=== PATIENT | female | born 1950 | race Caucasian/White ===

== ENCOUNTER 2017-08-17 20:33 | Emergency (ER) | payer OTHER ==
--- NOTE | 2017-08-17 21:20 | RAD REPORT ---
EXAM DESCRIPTION: RAD - Forearm Left - 08/17/2017 9:12 pm CLINICAL HISTORY: fall pain COMPARISON: None FINDINGS: The anterior and posterior fat pads are elevated. Lucency is seen in the radial head estefania tible with fracture. No dislocation evident.
--- NOTE | 2017-08-17 21:21 | RAD REPORT ---
EXAM DESCRIPTION: RAD - Humerus Left - 08/17/2017 9:12 pm CLINICAL HISTORY: PAIN History of fall COMPARISON: No comparisons FINDINGS: Subacromial outlet narrowing is identified. Glenohumeral relationship is preserved. No acu te fracture or dislocation of the humerus is seen.
--- NOTE | 2017-08-17 21:42 | ER ---
Nurse's Notes [facility] Name: Mary Padilla Age: 67 yrs Sex: Female : 1950 Arrival Date: 08/17/2017 Time: 20:34 Bed 19 Private MD: Diagnosis: Left radial head fracture. Presentation: 08/17 20:42 Presenting complaint: Patient states: left arm pain after falling on cement while ak1 walking her dog at 1500 today. pt to left forearm and left elbow. Transition of care: patient was not received from another setting of care. Onset of symptoms was August 17, 2017. Risk Assessment: Do you want to hurt yourself or someone else? Patient reports no desire to harm self or others. Initial Sepsis Screen: Does the patient meet any 2 criteria? No. Patient's initial sepsis screen is negative. Does the patient have a suspected source of infection? No. Patient's initial sepsis screen is negative. Care prior to arrival: ice. 20:42 Method Of Arrival: Ambulatory ak1 20:42 Acuity: ARMOND 4 ak1 Triage Assessment: 20:45 General: Appears in no apparent distress. uncomfortable, Behavior is calm, cooperative. ak1 20:45 Pain: Complains of pain in dorsal aspect of left forearm, left elbow and palmar aspect ak1 of left forearm. 20:56 Injury Description: fall onto left arm. jd3 Historical: - Allergies: 20:44 everything; ak1 - Home Meds: 20:44 [place] Thyroid Oral [Active]; ak1 - PMHx: 20:44 Hypothyroidism; ak1 - PSHx: 20:44 Hysterectomy; left knee sx; ak1 - Immunization history:: Adult Immunizations unknown. - Social history:: Smoking status: Patient/guardian denies using tobacco. - Ebola Screening: : No symptoms or risks identified at this time. Screenin:45 Abuse screen: Denies threats or abuse. Denies injuries from another. Nutritional ak1 screening: No deficits noted. Tuberculosis screening: No symptoms or risk factors identified. Fall Risk None identified. Assessment: 20:53 General: Appears uncomfortable, Behavior is calm, cooperative, appropriate for age. jd3 Pain: Complains of pain in left forearm Pain currently is 9 out of 10 on a pain scale. Quality of pain is described as sharp, tender, Is continuous. Neuro: Level of Consciousness is awake, alert, obeys commands, Oriented to person, place, time, situation, Appropriate for age. Cardiovascular: Capillary refill < 3 seconds Patient's skin is warm and dry. Respiratory: Airway is patent Respiratory effort is even, unlabored, Respiratory pattern is regular, symmetrical, Breath sounds are clear bilaterally. GI: No signs and/or symptoms were reported involving the gastrointestinal system. : No signs and/or symptoms were reported regarding the genitourinary system. EENT: No signs and/or symptoms were reported regarding the EENT system. Derm: Skin is intact, Skin is dry, Skin is normal, Skin temperature is warm. Musculoskeletal: Circulation, motion, and sensation intact. Range of motion: limited in left forearm and elbow. 21:52 Reassessment: Patient appears in no apparent distress at this time. Patient and/or bs1 family updated on plan of care and expected duration. Pain level reassessed. Patient is alert, oriented x 3, equal unlabored respirations, skin warm/dry/pink. Patients left arm placed in sling. Patient reports pain "feeling better". Bartlett given prior to discharge. Instructed on medication usage, need for follow up with Dr Martinez. Patient states understanding of POC. Vital Signs: 20:42 BP 186 / 99; Pulse 84; Resp 18; Temp 97.7(O); Pulse Ox 98% on R/A; Weight 78.02 kg (R); ak1 Height 4 ft. 11 in. (149.86 cm) (R); Pain 9/10; 21:42 BP 163 / 82; Pulse 65; Resp 16; Temp 97.3(O); Pulse Ox 96% on R/A; Pain 4/10; bs1 20:42 Body Mass Index 34.74 (78.02 kg, 149.86 cm) ak1 ED Course: 20:34 Patient arrived in ED. am2 20:36 Gerardo Martínez MD is Attending Physician. ps1 20:43 Triage completed. ak1 20:44 Mark Chilel, ELIZA is Primary Nurse. jd3 20:44 Arm band placed on Patient placed in an exam room, on a stretcher, on pulse oximetry, ak1 Patient notified of wait time. 20:45 Patient has correct armband on for positive identification. Bed in low position. Call ak1 light in reach. Side rails up X 1. Adult w/ patient. Pulse ox on. NIBP on. 21:01 X-ray completed. Portable x-ray completed in exam room. Patient tolerated procedure bb2 well. 21:01 Humerus Left XRAY In Process Unspecified. EDMS 21:01 Forearm Left XRAY In Process Unspecified. EDMS 21:41 Anibal Martinez MD is Referral Physician. ps1 21:51 No provider procedures requiring assistance completed. Patient did not have IV access bs1 during this emergency room visit. Administered Medications: 21:46 Drug: Bartlett 5 mg-325 mg 1 tabs Route: PO; jd3 21:50 Follow up: Response: No adverse reaction bs1 Outcome: 21:41 Discharge ordered by MD. ps1 21:51 Discharged to home ambulatory, with significant other. bs1 21:51 Condition: stable 21:51 Discharge instructions given to patient, Instructed on discharge instructions, follow up and referral plans. medication usage, Demonstrated understanding of instructions, follow-up care, medications, Prescriptions given X 2. 21:54 Patient left the ED. bs1 Signatures: Dispatcher [employer] EDMT Disha Evans, RN RN ak1 Yary Blount amMark Collazo RN RN jd3 Gerardo Martínez MD MD ps1 Riri Dexter bb2 Riri Westbrook, RN RN bs1
--- NOTE | 2017-08-17 21:42 | EDPHYS ---
Physician Documentation [facility] Name: Mary Padilla Age: 67 yrs Sex: Female : 1950 Arrival Date: 08/17/2017 Time: 20:34 Bed 19 Private MD: ED Physician Gerardo Martínez HPI: 08/17 20:42 This 67 yrs old Female presents to ER via Unassigned with complaints of Arm ps1 Injury. 20:42 onset was 3 pm. Patient was walking dog and tripped and fell. Did not hit head. No LOC. ps1 Has pain localized to left forearm and lower humerus. Non-radiating. Has superficial abrasion to proximal forearm. Pain rated moderate, worse with movement. . Historical: - Allergies: 20:44 everything; ak1 - Home Meds: 20:44 [place] Thyroid Oral [Active]; ak1 - PMHx: 20:44 Hypothyroidism; ak1 - PSHx: 20:44 Hysterectomy; left knee sx; ak1 - Immunization history:: Adult Immunizations unknown. - Social history:: Smoking status: Patient/guardian denies using tobacco. - Ebola Screening: : No symptoms or risks identified at this time. ROS: 20:42 Constitutional: Negative for fever, chills, and weight loss, Eyes: Negative for injury, ps1 pain, redness, and discharge, ENT: Negative for injury, pain, and discharge, Cardiovascular: Negative for chest pain, palpitations, and edema, Respiratory: Negative for shortness of breath, cough, wheezing, and pleuritic chest pain, Abdomen/GI: Negative for abdominal pain, nausea, vomiting, diarrhea, and constipation, Back: Negative for injury and pain, Neuro: Negative for headache, weakness, numbness, tingling, and seizure. 20:42 MS/extremity: Positive for injury or acute deformity. 20:42 Skin: Positive for abrasion(s). Exam: 20:42 Constitutional: This is a well developed, well nourished patient who is awake, alert, ps1 and in no acute distress. Head/Face: Normocephalic, atraumatic. Eyes: Pupils equal round and reactive to light, extra-ocular motions intact. Lids and lashes normal. Conjunctiva and sclera are non-icteric and not injected. Chest/axilla: Normal chest wall appearance and motion. Nontender with no deformity. No lesions are appreciated. Cardiovascular: Regular rate and rhythm. No gallops, murmurs, or rubs. Normal PMI, no JVD. No pulse deficits. Respiratory: Lungs have equal breath sounds bilaterally, clear to auscultation and percussion. No rales, rhonchi or wheezes noted. No increased work of breathing, no retractions or nasal flaring. Abdomen/GI: Soft, non-tender, with normal bowel sounds. No distension or tympany. No guarding or rebound. No evidence of tenderness throughout. 20:42 Musculoskeletal/extremity: Extremities: grossly normal except: noted in the palmar aspect of left forearm: abrasion, pain, NV intact otherwise. Vital Signs: 20:42 BP 186 / 99; Pulse 84; Resp 18; Temp 97.7(O); Pulse Ox 98% on R/A; Weight 78.02 kg (R); ak1 Height 4 ft. 11 in. (149.86 cm) (R); Pain 9/10; 21:42 BP 163 / 82; Pulse 65; Resp 16; Temp 97.3(O); Pulse Ox 96% on R/A; Pain 4/10; bs1 20:42 Body Mass Index 34.74 (78.02 kg, 149.86 cm) ak1 MDM: 20:45 Patient medically screened. [facility] 20:45 Data reviewed: vital signs, nurses notes. ED course: pt deferred opioid analgesia until ps1 after workup. Offered during initial evaluation. . 21:44 ED course: Gave norco for pain prior to discharge. Home with follow up with Juan. ps1 Has non-displaced radial head fracture. Stable. NV intact. . 08/17 20:42 Order name: Humerus Left XRAY; Complete Time: 21:26 ps1 08/17 20:42 Order name: Forearm Left XRAY; Complete Time: 21:26 ps1 08/17 20:42 Order name: Arm-Sling; Complete Time: 20:45 ps1 Administered Medications: 21:46 Drug: [place] 5 mg-325 mg 1 tabs Route: PO; jd3 21:50 Follow up: Response: No adverse reaction bs1 Disposition: 08/17/17 21:41 Discharged to Home. Impression: Left radial head fracture. . - Condition is Stable. - Discharge Instructions: Radial Head Fracture. - Prescriptions for Tylenol- Codeine #3 300-30 mg Oral Tablet - take 2 tablet by ORAL route every 6 hours As needed; 30 tablet. Zofran 4 mg Oral Tablet - take 1 tablet by ORAL route every 12 hours As needed; 6 tablet. - Medication Reconciliation Form, Thank You Letter, Antibiotic Education, Prescription Opioid Use form. - Follow up: Anibal Martinez MD; When: 1 week; Reason: Recheck today's complaints, Continuance of care, Re-evaluation by your physician. - Problem is new. - Symptoms have improved. Signatures: Dispatcher [employer] EDMS Evens Stafford MD MD cha Krenek, Amber RN RN ak1 Mark Chilel RN RN jd3 Gerardo Martínez MD MD ps1 Salazar, Brittany RN RN bs1 Corrections: (The following items were deleted from the chart) 21:54 21:41 08/17/2017 21:41 Discharged to Home. Impression: Left radial head fracture. . bs1 Condition is Stable. Forms are Medication Reconciliation Form, Thank You Letter, Antibiotic Education, Prescription Opioid Use. Follow up: Anibal Martinez; When: 1 week; Reason: Recheck today's complaints, Continuance of care, Re-evaluation by your physician. Problem is new. Symptoms have improved. ps1
[2017-08-17] MEDS ORDERED: HYDROCODONE/APAP 5/325 MG TAB ONE (21:47)
== END 2017-08-17 21:54 | disposition home or self-care (01) ==
LOC: ER 20:33
DX: S52.122A Displaced fracture of head of left radius, initial encounter for closed fracture (principal); E03.9 Hypothyroidism, unspecified; W01.0XXA Fall on same level from slipping, tripping and stumbling without subsequent striking against object, initial encounter; Y93.K1 Activity, walking an animal; Y92.9 Unspecified place or not applicable; Y99.8 Other external cause status; Z91.09 Other allergy status, other than to drugs and biological substances
CPT/HCPCS: 99284

== ENCOUNTER 2017-12-07 09:58 | Emergency (ER) | payer OTHER ==
--- NOTE | 2017-12-07 10:47 | EKG ---
Test Date: 2017-12-07 Test Time: 10:40:09 Medical Center Director: HEATHER MEASUREMENT RESULTS: Intervals: Rate: 64 NH: 128 QRSD: 80 QT: 434 QTc: 447 [place]: P: 49 NH: 128 QRS: -9 T: 32 INTERPRETIVE STATEMENTS: Normal sinus rhythm Moderate voltage criteria for LVH, may be normal variant Borderline ECG No previous ECG available for comparison Electronically Signed On 12-07-17 10:47:00 CDT by Alejandro Amanda
[2017-12-07 11:02] LABS: Absolute Lymphocytes (CBC) 1.5 K/uL (0.7-4.9); Absolute Monocytes 0.4 K/uL (0.1-1.3); Absolute Neutrophil 3.5 K/uL (1.8-8.0); Basophils % 0.4 % (0-1.3); Eosinophils % 1.6 % (0-4.4); Hematocrit 40.7 % (36.0-45.0); Lymphocytes % 27.6 % (15.3-44.8); MCH 28.4 pg (27.0-35.0); MCV 86.6 fL (80-100); MPV 10.2 fL (7.6-11.3); Monocytes % 7.8 % (3.3-12.3); Protime INR 1.04
--- NOTE | 2017-12-07 11:03 | RAD REPORT ---
EXAM DESCRIPTION: RAD - Chest Single View - 12/07/2017 10:49 am CLINICAL HISTORY: COUGH Chest pain. COMPARISON: No comparisons FINDINGS: Portable technique limits examination quality. The lungs are grossly clear. The heart is normal in size. No displaced fractures. IMPRESSION: No acute intrathoracic process suspected.
[2017-12-07 11:10] LABS: Urine Blood NEGATIVE (NEG); Urine Glucose NEGATIVE (NEG); Urine Protein NEGATIVE (NEG); Urine Specific Gravity 1.015 (1.005-1.030); Urine pH 6.5 (5.0-7.0)
[2017-12-07 11:13] LABS: ALT/SGPT 20 U/L (12-78); AST/SGOT 16 U/L (15-37); Albumin 3.4 g/dL (3.4-5.0); Alkaline Phosphatase 120 U/L (45-117); BUN Blood Urea Nitrogen 15 mg/dL (7-18); Bicarbonate 26 mmol/L (21-32); Bilirubin Direct 0.1 mg/dL (0-0.2); Bilirubin Total 0.5 mg/dL (0.2-1.0); Glucose Level 95 mg/dL (74-106); NT PRO-BNP 276 pg/mL (<125); Potassium 3.5 mmol/L (3.5-5.1); Protein, Total 7.3 g/dL (6.4-8.2); Sodium Level 142 mmol/L (136-145); Troponin (Emerg Dept Use Only) < 0.02 ng/mL (0.0-0.045)
[2017-12-07] MEDS ORDERED: AMLODIPINE 5 MG TAB ONE (11:46)
--- NOTE | 2017-12-07 12:07 | RAD REPORT ---
EXAM DESCRIPTION: CT - Head Brain Wo Cont - 12/07/2017 11:46 am CLINICAL HISTORY: DIZZINESS Drowsiness, headache, hypertension COMPARISON: No comparisons TECHNIQUE: All CT scans are performed using dose optimization technique as appropriate and may inclu de automated exposure control or mA/KV adjustment according to patient size. FINDINGS: No intracranial hemorrhage, hydrocephalus or extra-axial fluid collection.No areas of brai n edema or evidence of midline shift. The paranasal sinuses and mastoids are clear. The calvarium is intact. IMPRESSION: No acute intracranial abnormality.
--- NOTE | 2017-12-07 12:13 | ER ---
Nurse's Notes [facility] Name: Mary Padilla Age: 67 yrs Sex: Female : 1950 Arrival Date: 12/07/2017 Time: 10:01 Bed 19 Private MD: Osvaldo Duff Diagnosis: Essential (primary) hypertension;Weakness;Dizziness and giddiness Presentation: 12/07 10:03 Presenting complaint: Patient states: "my blood pressure was really high this morning aa5 it was above 200 on the top number and above 100 on the bottom number". pt states "I just feel really bad, my head and my ears feel stuffy and I feel shaky". Pt reports she just started taking Doxazosin 12/04/17. Pt states "I took Doxazosin last night and this morning about an hour ago again". Transition of care: patient was not received from another setting of care. Onset of symptoms was December 07, 2017. Risk Assessment: Do you want to hurt yourself or someone else? Patient reports no desire to harm self or others. Initial Sepsis Screen: Does the patient meet any 2 criteria? No. Patient's initial sepsis screen is negative. Does the patient have a suspected source of infection? No. Patient's initial sepsis screen is negative. Care prior to arrival: None. 10:03 Method Of Arrival: Ambulatory aa5 10:03 Acuity: ARMOND 3 aa5 Historical: - Allergies: 10:06 Erythromycin; aa5 10:06 "all pain medicines"; aa5 10:06 Advil; aa5 - PMHx: 10:06 Hypothyroidism; Hypertension; aa5 - PSHx: 10:06 Hysterectomy; left knee sx; aa5 - Immunization history:: Adult Immunizations unknown. - Social history:: Smoking status: Patient/guardian denies using tobacco. - Ebola Screening: : No symptoms or risks identified at this time. - Family history:: not pertinent. Screenin:32 Abuse screen: Denies threats or abuse. Denies injuries from another. Nutritional jl7 screening: No deficits noted. Tuberculosis screening: No symptoms or risk factors identified. Fall Risk IV access (20 points). Total Lamb Fall Scale indicates No Risk (0-24 pts). Assessment: 10:20 General: Appears in no apparent distress. uncomfortable, Behavior is calm, cooperative, jl7 appropriate for age. Pain: Complains of pain in headache Pain currently is 8 out of 10 on a pain scale. Neuro: Level of Consciousness is awake, alert, obeys commands, Oriented to person, place, time, situation. Cardiovascular: Denies chest pain, Heart tones S1 S2 present Patient's skin is warm and dry. Respiratory: Airway is patent Respiratory effort is even, unlabored, Respiratory pattern is regular, symmetrical, Breath sounds are clear bilaterally. Denies shortness of breath. GI: No signs and/or symptoms were reported involving the gastrointestinal system. : No signs and/or symptoms were reported regarding the genitourinary system. EENT: No signs and/or symptoms were reported regarding the EENT system. Derm: Skin is pink, warm \\T\\ dry. Musculoskeletal: No signs and/or symptoms reported regarding the musculoskeletal system. 11:13 Reassessment: Dr. Stafford at bedside discussing plan of care. jl7 12:00 Reassessment: Patient appears in no apparent distress at this time. No changes from jl7 previously documented assessment. Patient and/or family updated on plan of care and expected duration. Pain level reassessed. Patient is alert, oriented x 3, equal unlabored respirations, skin warm/dry/pink. 12:28 Reassessment: Pt requesting to talk to Dr. Stafford, Dr. Stafford notified. jl7 Vital Signs: 10:06 BP 181 / 106; Pulse 65; Resp 18 S; Temp 98.0(TE); Pulse Ox 99% on R/A; Weight 79.38 kg aa5 (R); Height 4 ft. 11 in. (149.86 cm) (R); Pain 8/10; 10:32 BP 171 / 94; Pulse 63; Resp 18 S; Pulse Ox 99% on R/A; jl7 11:12 BP 175 / 87; Pulse 71; Resp 17 S; Pulse Ox 99% on R/A; jl7 12:30 BP 188 / 96; Pulse 57; Resp 16; Pulse Ox 100% ; jl7 10:06 Body Mass Index 35.35 (79.38 kg, 149.86 cm) aa5 ED Course: 10:01 Patient arrived in ED. mr 10:02 Osvaldo Duff is Private Physician. mr 10:05 Triage completed. aa5 10:05 Arm band placed on. aa5 10:14 Weiss, Jahala, RN is Primary Nurse. jl7 10:19 Evens Stafford MD is Attending Physician. [facility] 10:32 Patient has correct armband on for positive identification. Placed in gown. Bed in low jl7 position. Call light in reach. Side rails up X 1. community arts worker on. Pulse ox on. NIBP on. Warm blanket given. 10:32 Initial lab(s) drawn, by or, sent to lab. Urine collected: clean catch specimen. jl7 Inserted saline lock: 20 gauge in right antecubital area, using aseptic technique. Blood collected. 10:42 EKG done, by marine diesel technician. reviewed by Evens Stafford MD. 3 10:49 X-ray completed. Portable x-ray completed in exam room. Patient tolerated procedure sw well. 10:49 XRAY Chest (1 view) In Process Unspecified. EDDE 11:42 CT completed. Patient tolerated procedure well. Patient moved to CT via wheelchair. Patient moved back from CT. 11:45 CT Head Brain wo Cont In Process Unspecified. EDMS 12:13 Osvaldo Duff is Referral Physician. [facility] 12:13 Brandon Singh MD is Referral Physician. [facility] 12:48 No provider procedures requiring assistance completed. IV discontinued, intact, jl7 bleeding controlled, No redness/swelling at site. Pressure dressing applied. Administered Medications: 11:50 Drug: Norvasc 5 mg Route: PO; jl7 12:48 Follow up: Response: No adverse reaction jl7 Outcome: 12:13 Discharge ordered by . [facility] 12:48 Discharged to home ambulatory. jl7 12:48 Condition: stable 12:48 Discharge instructions given to patient, family, Instructed on discharge instructions, follow up and referral plans. medication usage, Demonstrated understanding of instructions, follow-up care, medications, Prescriptions given X 1. 12:49 Patient left the ED. jl7 Signatures: Dispatcher [employer] EDDE Evens Stafford MD MD cha Rivera, Mercedez Flor Sykes Ashlee Campos, RN RN Rebecca Farah Jahala, ELIZA RN jl7 Cassie Patrick 3 Corrections: (The following items were deleted from the chart) 11:12 10:20 Pain: Denies pain. jl7 jl7 12:29 11:00 Reassessment: Patient appears in no apparent distress at this time. No changes jl7 from previously documented assessment. Patient and/or family updated on plan of care and expected duration. Pain level reassessed. Patient is alert, oriented x 3, equal unlabored respirations, skin warm/dry/pink. jl7
--- NOTE | 2017-12-07 12:13 | EDPHYS ---
Physician Documentation [facility] Name: Mary Padilla Age: 67 yrs Sex: Female : 1950 Arrival Date: 12/07/2017 Time: 10:01 Bed 19 Private MD: Osvaldo Duff ED Physician Evens Stafford HPI: 12/07 11:51 This 67 yrs old Female presents to ER via Ambulatory with complaints of High pau Blood Pressure. 11:51 The patient has elevated blood pressure and discovered this at home. Onset: The pau symptoms/episode began/occurred 2 day(s) ago. Modifying factors: The symptoms are aggravated by activity, The symptoms are alleviated by remaining still. Associated signs and symptoms: Pertinent positives: dizziness, headache, lightheadedness. Severity of symptoms: At its worst the blood pressure was mild, in the emergency department the blood pressure is unchanged. The patient has experienced similar episodes in the past, several times. Historical: - Allergies: 10:06 Erythromycin; aa5 10:06 "all pain medicines"; aa5 10:06 Advil; aa5 - PMHx: 10:06 Hypothyroidism; Hypertension; aa5 - PSHx: 10:06 Hysterectomy; left knee sx; aa5 - Immunization history:: Adult Immunizations unknown. - Social history:: Smoking status: Patient/guardian denies using tobacco. - Ebola Screening: : No symptoms or risks identified at this time. - Family history:: not pertinent. ROS: 11:51 Constitutional: Negative for fever, chills, and weight loss, Eyes: Negative for injury, pau pain, redness, and discharge, ENT: Negative for injury, pain, and discharge, Neck: Negative for injury, pain, and swelling, Cardiovascular: Negative for chest pain, palpitations, and edema, Respiratory: Negative for shortness of breath, cough, wheezing, and pleuritic chest pain, Abdomen/GI: Negative for abdominal pain, nausea, vomiting, diarrhea, and constipation, Back: Negative for injury and pain, : Negative for injury, bleeding, discharge, and swelling, MS/Extremity: Negative for injury and deformity, Skin: Negative for injury, rash, and discoloration, Psych: Negative for depression, anxiety, suicide ideation, homicidal ideation, and hallucinations, Allergy/Immunology: Negative for hives, rash, and allergies, Endocrine: Negative for neck swelling, polydipsia, polyuria, polyphagia, and marked weight changes, Hematologic/Lymphatic: Negative for swollen nodes, abnormal bleeding, and unusual bruising. 11:51 Neuro: Positive for dizziness, headache, weakness. Exam: 11:51 Constitutional: This is a well developed, well nourished patient who is awake, alert, pau and in no acute distress. Head/Face: Normocephalic, atraumatic. Eyes: Pupils equal round and reactive to light, extra-ocular motions intact. Lids and lashes normal. Conjunctiva and sclera are non-icteric and not injected. Cornea within normal limits. Periorbital areas with no swelling, redness, or edema. ENT: Nares patent. No nasal discharge, no septal abnormalities noted. Tympanic membranes are normal and external auditory canals are clear. Oropharynx with no redness, swelling, or masses, exudates, or evidence of obstruction, uvula midline. Mucous membranes moist. Neck: Trachea midline, no thyromegaly or masses palpated, and no cervical lymphadenopathy. Supple, full range of motion without nuchal rigidity, or vertebral point tenderness. No Meningismus. Chest/axilla: Normal chest wall appearance and motion. Nontender with no deformity. No lesions are appreciated. Cardiovascular: Regular rate and rhythm with a normal S1 and S2. No gallops, murmurs, or rubs. Normal PMI, no JVD. No pulse deficits. Respiratory: Lungs have equal breath sounds bilaterally, clear to auscultation and percussion. No rales, rhonchi or wheezes noted. No increased work of breathing, no retractions or nasal flaring. Abdomen/GI: Soft, non-tender, with normal bowel sounds. No distension or tympany. No guarding or rebound. No evidence of tenderness throughout. Back: No spinal tenderness. No costovertebral tenderness. Full range of motion. Female : Normal external genitalia. Skin: Warm, dry with normal turgor. Normal color with no rashes, no lesions, and no evidence of cellulitis. MS/ Extremity: Pulses equal, no cyanosis. Neurovascular intact. Full, normal range of motion. Neuro: Awake and alert, GCS 15, oriented to person, place, time, and situation. Cranial nerves II-XII grossly intact. Motor strength 5/5 in all extremities. Sensory grossly intact. Cerebellar exam normal. Normal gait. Psych: Awake, alert, with orientation to person, place and time. Behavior, mood, and affect are within normal limits. 12:12 Neck: External neck: is normal, no acute changes, C-spine: appears grossly normal, no pau acute changes, Thyroid: appears normal, no carotid bruits, no jvd, Trachea: is midline with no obvious abnormalities, ROM/movement: is normal, no acute changes, Lymph nodes: no appreciated lymphadenopathy. Vital Signs: 10:06 BP 181 / 106; Pulse 65; Resp 18 S; Temp 98.0(TE); Pulse Ox 99% on R/A; Weight 79.38 kg aa5 (R); Height 4 ft. 11 in. (149.86 cm) (R); Pain 8/10; 10:32 BP 171 / 94; Pulse 63; Resp 18 S; Pulse Ox 99% on R/A; jl7 11:12 BP 175 / 87; Pulse 71; Resp 17 S; Pulse Ox 99% on R/A; jl7 12:30 BP 188 / 96; Pulse 57; Resp 16; Pulse Ox 100% ; jl7 10:06 Body Mass Index 35.35 (79.38 kg, 149.86 cm) aa5 MDM: 10:19 Patient medically screened. [facility] 12:11 Data reviewed: vital signs, nurses notes, lab test result(s), EKG, radiologic studies, [facility] CT scan, plain films. 12/07 10:27 Order name: Basic Metabolic Panel; Complete Time: 11:20 [facility] 12/07 10:27 Order name: CBC with Diff; Complete Time: 11:20 [facility] 12/07 10:27 Order name: LFT's; Complete Time: 11:20 [facility] 12/07 10:27 Order name: Magnesium; Complete Time: 11:20 [facility] 12/07 10:27 Order name: NT PRO-BNP; Complete Time: 11:20 [facility] 12/07 10:27 Order name: PT-INR; Complete Time: 11:20 [facility] 12/07 10:27 Order name: Troponin (emerg Dept Use Only); Complete Time: 11:20 [facility] 12/07 10:27 Order name: XRAY Chest (1 view); Complete Time: 11:20 [facility] 12/07 10:27 Order name: EKG; Complete Time: 10:28 [facility] 12/07 10:27 Order name: Cardiac monitoring; Complete Time: 10:30 [facility] 12/07 10:44 Order name: Urine Dipstick--Ancillary (enter results); Complete Time: 11:20 12/07 11:20 Order name: TSH [facility] 12/07 11:21 Order name: CT Head Brain wo Cont; Complete Time: 12:10 [facility] 12/07 10:27 Order name: EKG - Nurse/Tech; Complete Time: 10:39 [facility] 12/07 10:27 Order name: IV Saline Lock; Complete Time: 10:29 [facility] 12/07 10:27 Order name: Labs collected and sent; Complete Time: 10:29 [facility] 12/07 10:27 Order name: O2 Per Protocol; Complete Time: 10:29 [facility] 12/07 10:27 Order name: O2 Sat Monitoring; Complete Time: 10:29 [facility] 12/07 10:27 Order name: Urine Dipstick-Ancillary (obtain specimen); Complete Time: 10:30 [facility] Administered Medications: 11:50 Drug: Norvasc 5 mg Route: PO; jl7 12:48 Follow up: Response: No adverse reaction jl7 Disposition: 12/07/17 12:13 Discharged to Home. Impression: Essential (primary) hypertension, Weakness, Dizziness and giddiness. - Condition is Stable. - Discharge Instructions: Dizziness, Hypertension, Weakness, Fatigue, Hypertension, Svlb-jh-[id number], How to Take Your Blood Pressure, Mokn-cn-[id number], Weakness, Cvxc-zj-Bhhv, Managing Your Hypertension. - Prescriptions for Norvasc 5 mg Oral Tablet - take 1 tablet by ORAL route once daily; 20 tablet. - Medication Reconciliation Form, Thank You Letter, Antibiotic Education, Prescription Opioid Use form. - Follow up: Osvaldo Duff; When: 2 - 3 days; Reason: Recheck today's complaints, Continuance of care, Re-evaluation by your physician. Follow up: Brandon Singh; When: 2 - 3 days; Reason: Recheck today's complaints, Re-evaluation by your physician. - Problem is new. - Symptoms have improved. Signatures: Dispatcher [employer] EDEvens Dutta MD MD cha Calderon, Audri, RN RN aa5 Negar Weiss RN RN jl7 Corrections: (The following items were deleted from the chart) 12:49 12:13 12/07/2017 12:13 Discharged to Home. Impression: Essential (primary) jl7 hypertension; Weakness; Dizziness and giddiness. Condition is Stable. Discharge Instructions: Dizziness, Hypertension, Weakness, Fatigue, Hypertension, Xwdo-st-Hjiu, How to Take Your Blood Pressure, Llfh-re-Lxaf, Weakness, Tlwd-zb-Ediu, Managing Your Hypertension. Prescriptions for Norvasc 5 mg Oral Tablet - take 1 tablet by ORAL route once daily; 20 tablet. and Forms are Medication Reconciliation Form, Thank You Letter, Antibiotic Education, Prescription Opioid Use. Follow up: Osvaldo Duff; When: 2 - 3 days; Reason: Recheck today's complaints, Continuance of care, Re-evaluation by your physician. Follow up: Brandon Singh; When: 2 - 3 days; Reason: Recheck today's complaints, Re-evaluation by your physician. Problem is new. Symptoms have improved. pau
== END 2017-12-07 12:49 | disposition home or self-care (01) ==
LOC: ER 09:58
DX: I10 Essential (primary) hypertension (principal); R53.1 Weakness; Z88.3 Allergy status to other anti-infective agents; Z88.6 Allergy status to analgesic agent; Z88.8 Allergy status to other drugs, medicaments and biological substances
CPT/HCPCS: 36415; 70450; 71045; 80048; 80076; 81003; 83735; 83880; 84443; 84484; 85025; 85610; 93005; 99285

== ENCOUNTER 2020-05-26 21:03 | Emergency (ER) | payer OTHER ==
--- OUTSIDE RECORDS SUMMARY | 2020-05-26 21:06 | XMS REPORT | Continuity of Care Document ---
:1950 Author Organization [facility] t Address [address] [place] [address] Care Team Providers Name Role Phone GERMAINE Attending Clinician Unavailable KAMILLA Attending Clinician Unavailable GERMAINE Admitting Clinician Unavailable Problems This patient has no known problems. Allergies, Adverse Reactions, Alerts This patient has no known allergies or adverse reactions. Medications This patient has no known medications. Procedures This patient has no known procedures. Encounters Start End Encounter Admission Attending Care Care Encounter Source Date/Time Date/Time Type Type Clinicians Facility Department ID 2019-12-28 2019-12-28 [facility] [id number] [place] 00:00:00 00:00:00 JOSIE [address] [facility] 2019-08-25 2019-08-25 [facility] [id number] [place] 00:00:00 00:00:00 KERWIN [address] 2019-05-11 2019-05-11 [facility] [id number] [place] 00:00:00 00:00:00 JOSIE [address] 2018-11-29 2018-11-30 [facility] [id number] [place] 00:00:00 00:00:00 JOSIE [address] Results This patient has no known results.
[2020-05-26 22:27] LABS: Absolute Lymphocytes (CBC) 1.5 K/uL (0.7-4.9); Basophils % 0.8 % (0-1.3); Hematocrit 36.6 % (36.0-45.0); Lymphocytes % 27.7 % (15.3-44.8); MPV 9.5 fL (7.6-11.3); RBC Red Blood Cell Count 4.25 M/uL (3.86-4.86)
[2020-05-26 22:33] LABS: Protime INR 0.96
[2020-05-26] MEDS ORDERED: NA CHLORIDE 0.9% 500 ML ONE (22:36)
[2020-05-26] MEDS ORDERED: FAMOTIDINE 20 MG/2 ML VIAL IV ONE (22:36)
[2020-05-26] MEDS ORDERED: ONDANSETRON 4 MG/2 ML VIAL ONE ×2 (22:36→23:31)
[2020-05-26 22:49] LABS: ALT/SGPT 22 U/L (12-78); AST/SGOT 18 U/L (15-37); Albumin 3.4 g/dL (3.4-5.0); Alkaline Phosphatase 123 U/L (45-117); BUN Blood Urea Nitrogen 21 mg/dL (7-18); Bicarbonate 28 mmol/L (21-32); Bilirubin Direct 0.1 mg/dL (0-0.2); Bilirubin Total 0.4 mg/dL (0.2-1.0); Glucose Level 93 mg/dL (74-106); Lipase 91 U/L (73-393); Magnesium 2.1 mg/dL (1.8-2.4); NT PRO-BNP 195 pg/mL (<125); Potassium 3.6 mmol/L (3.5-5.1); Protein, Total 7.4 g/dL (6.4-8.2); Sodium Level 141 mmol/L (136-145); Troponin (Emerg Dept Use Only) < 0.02 ng/mL (0.0-0.045)
[2020-05-27 00:06] LABS: Urine Blood NEGATIVE (Negative); Urine Glucose NEGATIVE (Negative); Urine Protein NEGATIVE (NEG)
[2020-05-27] MEDS ORDERED: MECLIZINE HCL 12.5 MG TAB ONE (01:09)
--- NOTE | 2020-05-27 01:41 | EDPHYS ---
Physician Documentation [facility] Name: Mary Padilla Age: 69 yrs Sex: Female : 1950 Arrival Date: 05/26/2020 Time: 21:03 Bed 7 Private MD: ED Physician Dani Gallardo HPI: 05/26 23:16 This 69 yrs old Female presents to ER via Wheelchair with complaints of High mh7 Blood Pressure, Vomiting. 23:16 The patient presents with dizziness, sense of spinning. Onset: The symptoms/episode mh7 began/occurred yesterday. 23:17 Context: occurred at home, occurred while the patient was sitting, just prior to the mh7 episode the patient experienced no apparent symptoms. Modifying factors: The symptoms are alleviated by holding head still, the symptoms are aggravated by movement of head, changing position. Associated signs and symptoms: Pertinent positives: nausea, vomiting, Pertinent negatives: abdominal pain, agitation, ataxia, blurred vision, chest pain, combativeness, confusion, diaphoresis, focal weakness, head injury, headache, near-syncope, numbness, palpitations, , seizure, shortness of breath, syncope, tingling. Severity of symptoms: At their worst the symptoms were moderate last night, in the emergency department the symptoms are unchanged. Patient's baseline: Neuro: alert and fully oriented, Motor: no deficits, Ambulation: walks without assistance, Speech: normal. Historical: - Allergies: 21:07 "all pain medicines"; ll1 21:07 Advil; ll1 21:07 Erythromycin; ll1 - Home Meds: 23:06 Dexilant 60 mg oral CpDB [Active]; losartan 50 mg oral tab 1 tab once daily [Active]; lp1 Browning Thyroid Oral [Active]; - PMHx: 21:07 Hypertension; Hypothyroidism; ll1 - PSHx: 21:07 Hysterectomy; left knee sx; ll1 21:07 bladder prolapse repair; ll1 - Immunization history:: Flu vaccine is not up to date. - Social history:: Smoking status: Patient denies any tobacco usage or history of. ROS: 23:17 Constitutional: Negative for fever, chills, and weight loss, Eyes: Negative for injury, mh7 pain, redness, and discharge, ENT: Negative for injury, pain, and discharge, Neck: Negative for injury, pain, and swelling, Cardiovascular: Negative for chest pain, palpitations, and edema, Respiratory: Negative for shortness of breath, cough, wheezing, and pleuritic chest pain, Back: Negative for injury and pain, : Negative for injury, bleeding, discharge, and swelling, MS/Extremity: Negative for injury and deformity, Skin: Negative for injury, rash, and discoloration, Neuro: Negative for headache, weakness, numbness, tingling, and seizure, Psych: Negative for depression, anxiety, suicide ideation, homicidal ideation, and hallucinations, Allergy/Immunology: Negative for hives, rash, and allergies, Endocrine: Negative for neck swelling, polydipsia, polyuria, polyphagia, and marked weight changes, Hematologic/Lymphatic: Negative for swollen nodes, abnormal bleeding, and unusual bruising. Exam: 23:17 Constitutional: This is a well developed, well nourished patient who is awake, alert, mh7 and in no acute distress. Head/Face: Normocephalic, atraumatic. Eyes: Pupils equal round and reactive to light, extra-ocular motions intact. Lids and lashes normal. Conjunctiva and sclera are non-icteric and not injected. Cornea within normal limits. Periorbital areas with no swelling, redness, or edema. ENT: Nares patent. No nasal discharge, no septal abnormalities noted. Tympanic membranes are normal and external auditory canals are clear. Oropharynx with no redness, swelling, or masses, exudates, or evidence of obstruction, uvula midline. Mucous membranes moist. Neck: Trachea midline, no thyromegaly or masses palpated, and no cervical lymphadenopathy. Supple, full range of motion without nuchal rigidity, or vertebral point tenderness. No Meningismus. Chest/axilla: Normal chest wall appearance and motion. Nontender with no deformity. No lesions are appreciated. Cardiovascular: Regular rate and rhythm with a normal S1 and S2. No gallops, murmurs, or rubs. Normal PMI, no JVD. No pulse deficits. Respiratory: Lungs have equal breath sounds bilaterally, clear to auscultation and percussion. No rales, rhonchi or wheezes noted. No increased work of breathing, no retractions or nasal flaring. Abdomen/GI: Soft, non-tender, with normal bowel sounds. No distension or tympany. No guarding or rebound. No evidence of tenderness throughout. Back: No spinal tenderness. No costovertebral tenderness. Full range of motion. Skin: Warm, dry with normal turgor. Normal color with no rashes, no lesions, and no evidence of cellulitis. MS/ Extremity: Pulses equal, no cyanosis. Neurovascular intact. Full, normal range of motion. Neuro: Awake and alert, GCS 15, oriented to person, place, time, and situation. Cranial nerves II-XII grossly intact. Motor strength 5/5 in all extremities. Sensory grossly intact. Cerebellar exam normal. Normal gait. Psych: Awake, alert, with orientation to person, place and time. Behavior, mood, and affect are within normal limits. Vital Signs: 21:04 BP 185 / 96; Pulse 67; Resp 17; Temp 97.1; Pulse Ox 100% ; Weight 76.2 kg; Height 4 ft. ll1 11 in. (149.86 cm); Pain 7/10; 21:45 BP 193 / 87; Pulse 67; Resp 18; Pulse Ox 98% on R/A; lp1 22:15 BP 176 / 64; Pulse 60; Resp 18; Pulse Ox 100% on R/A; lp1 23:15 BP 166 / 93; Pulse 61; Resp 17; lp1 05/27 00:00 BP 161 / 77; Pulse 59; Resp 19; Pulse Ox 95% on R/A; lp1 01:03 BP 149 / 76; Pulse 67; Resp 17; Pulse Ox 99% on R/A; Pain 0/10; lp1 01:54 BP 145 / 77; Pulse 66; Resp 16; Pulse Ox 99% on R/A; rv 05/26 21:04 Body Mass Index 33.93 (76.20 kg, 149.86 cm) ll1 MDM: 01:39 Differential diagnosis: cardiac arrhythmia, hypovolemia, idiopathic dizziness, mh7 near-syncope, vertigo. Data reviewed: vital signs, nurses notes, lab test result(s), cardiac enzymes, CBC, electrolytes, EKG, radiologic studies, CT scan, plain films. Data interpreted: Pulse oximetry: on room air is 99 %. Interpretation: normal. Counseling: I had a detailed discussion with the patient and/or guardian regarding: the historical points, exam findings, and any diagnostic results supporting the discharge/admit diagnosis, the presence of at least one elevated blood pressure reading (>120/80) during this emergency department visit, lab results, radiology results, the need for outpatient follow up, to return to the emergency department if symptoms worsen or persist or if there are any questions or concerns that arise at home. Response to treatment: the patient's symptoms have resolved after treatment, the patient's blood pressure is in an acceptable range, mental status has returned to baseline, the patient no longer shows bradycardia, the patient is not short of breath, the patient is not tachycardic, the patient's pain is gone, the patient's temperature has normalized, the patient is now symptom free, patient is well hydrated. 01:41 Patient medically screened. [facility] 05/26 22:09 Order name: Basic Metabolic Panel [facility] 05/26 22:09 Order name: CBC with Diff; Complete Time: 23:06 [facility] 05/26 22:09 Order name: LFT's; Complete Time: 23:06 [facility] 05/26 22:09 Order name: Magnesium; Complete Time: 23:06 [facility] 05/26 22:09 Order name: NT PRO-BNP; Complete Time: 23:06 [facility] 05/26 22:09 Order name: PT-INR; Complete Time: 23:06 [facility] 05/26 22:09 Order name: Troponin (emerg Dept Use Only); Complete Time: 23:06 [facility] 05/26 22:09 Order name: XRAY Chest (1 view) [facility] 05/26 22:09 Order name: Lipase; Complete Time: 23:06 [facility] 05/26 22:09 Order name: CT Head Brain wo Cont [facility] 05/26 22:09 Order name: CT Abd/Pelvis - IV Contrast Only [facility] 05/26 22:10 Order name: Basic Metabolic Panel; Complete Time: 23:06 [facility] 05/26 23:59 Order name: Urine Dipstick--Ancillary (enter results); Complete Time: 00:13 2 05/26 22:09 Order name: EKG; Complete Time: 22:10 [facility] 05/26 22:09 Order name: Cardiac monitoring; Complete Time: 22:31 [facility] 05/26 22:09 Order name: EKG - Nurse/Tech; Complete Time: 22:31 [facility] 05/26 22:09 Order name: IV Saline Lock; Complete Time: 22:31 mh7 05/26 22:09 Order name: Labs collected and sent; Complete Time: 22: mh7 05/26 22:09 Order name: O2 Per Protocol; Complete Time: :31 mh7 05/26 22:09 Order name: O2 Sat Monitoring; Complete Time: 22:31 mh7 05/26 22:09 Order name: Urine Dipstick-Ancillary (obtain specimen); Complete Time: 00:59 mh7 Administered Medications: 05/26 22:20 Drug: Zofran (Ondansetron) 4 mg Route: IVP; Site: left antecubital; lp1 22:45 Follow up: Response: No adverse reaction lp1 22:20 Drug: Pepcid (famotidine) 20 mg Route: IVP; Site: left antecubital; lp1 23:00 Follow up: Response: No adverse reaction lp1 22:20 Drug: NS 0.9% 500 ml Route: IV; Rate: bolus; Site: left antecubital; lp1 23:00 Follow up: IV Status: Completed infusion; IV Intake: 500ml lp1 23:19 Drug: Zofran (Ondansetron) 4 mg Route: IVP; Site: left antecubital; lp1 23:45 Follow up: Response: Nausea is decreased [facility] 05/27 00:56 Drug: Meclizine 25 mg Route: PO; lp1 01:55 Follow up: Response: No adverse reaction rv Disposition: 05/27/20 01:41 Discharged to Home. Impression: Vertigo. - Condition is Stable. - Discharge Instructions: Vertigo, Doak-ad-Zjru. - Prescriptions for Meclizine 25 mg Oral Tablet - take 1 tablet by ORAL route every 8 hours As needed; 15 tablet. - Medication Reconciliation Form, Thank You Letter, Antibiotic Education, Prescription Opioid Use form. - Follow up: Private Physician; When: 1 - 2 days; Reason: Worsening of condition, Recheck today's complaints, Continuance of care, Re-evaluation by your physician. Follow up: Marci Suero MD; When: 1 - 2 days; Reason: Worsening of condition, Recheck today's complaints. - Problem is new. - Symptoms have improved. Signatures: Dispatcher [employer] EDMS Sadaf Garcia RN RN lp1 Payam Thomas, RN RN rv Fred Barrientos RN RN ll1 Dani Gallardo MD MD mh7 Corrections: (The following items were deleted from the chart) 01:55 01:41 05/27/2020 01:41 Discharged to Home. Impression: Vertigo. Condition is Stable. rv Forms are Medication Reconciliation Form, Thank You Letter, Antibiotic Education, Prescription Opioid Use. Follow up: Private Physician; When: 1 - 2 days; Reason: Worsening of condition, Recheck today's complaints, Continuance of care, Re-evaluation by your physician. Follow up: Marci Suero; When: 1 - 2 days; Reason: Worsening of condition, Recheck today's complaints. Problem is new. Symptoms have improved. mh7
--- NOTE | 2020-05-27 01:41 | ER ---
Nurse's Notes [facility] Name: Mary Padilla Age: 69 yrs Sex: Female : 1950 Arrival Date: 05/26/2020 Time: 21:03 Bed 7 Private MD: Diagnosis: Vertigo Presentation: 05/26 21:04 Chief complaint: Patient states: Dizziness since midnight. Resolved last night. 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 N/V on the way here. BP 195/112 at home. Coronavirus screen: Client denies travel out of the [place] in the last 14 days. At this time, the client does not indicate any symptoms associated with coronavirus-19. Ebola Screen: Patient denies travel to an Ebola-affected area in the 21 days before illness onset. Initial Sepsis Screen: Does the patient meet any 2 criteria? No. Patient's initial sepsis screen is negative. Does the patient have a suspected source of infection? No. Patient's initial sepsis screen is negative. Risk Assessment: Do you want to hurt yourself or someone else? Patient reports no desire to harm self or others. Onset of symptoms was May 26, 2020. 21:04 Method Of Arrival: Wheelchair ll1 21:04 Acuity: ARMOND 2 ll1 Historical: - Allergies: 21:07 "all pain medicines"; ll1 21:07 Advil; ll1 21:07 Erythromycin; ll1 - Home Meds: 23:06 Dexilant 60 mg oral CpDB [Active]; losartan 50 mg oral tab 1 tab once daily [Active]; lp1 [place] Thyroid Oral [Active]; - PMHx: 21:07 Hypertension; Hypothyroidism; ll1 - PSHx: 21:07 Hysterectomy; left knee sx; ll1 21:07 bladder prolapse repair; ll1 - Immunization history:: Flu vaccine is not up to date. - Social history:: Smoking status: Patient denies any tobacco usage or history of. Screenin:33 Abuse screen: Denies threats or abuse. Denies injuries from another. Nutritional lp1 screening: No deficits noted. Tuberculosis screening: No symptoms or risk factors identified. Fall Risk No fall in past 12 months (0 pts). Secondary diagnosis (15 points) dizziness. IV access (20 points). Ambulatory Aid- None/Bed Rest/Nurse Assist (0 pts). Gait- Normal/Bed Rest/Wheelchair (0 pts) Mental Status- Oriented to own ability (0 pts). Total Lamb Fall Scale indicates Low Risk Score (25-44 pts). Fall prevention measures have been instituted. Side Rails Up X 2 As available Patient and Family Educated on Fall Prevention Program and strategies. Assessment: 22:30 General: Appears uncomfortable, Behavior is appropriate for age. Pain: Complains of lp1 pain in head Pain currently is 6 out of 10 on a pain scale. Neuro: Level of Consciousness is awake, alert, obeys commands, Oriented to person, place, time, situation, Gait is steady, Reports dizziness, headache Denies blurred vision paresthesias photophobia. Cardiovascular: Patient's skin is warm and dry. Respiratory: Airway is patent Respiratory effort is even, unlabored, Respiratory pattern is regular. GI: Abdomen is non-distended, Reports nausea. : No signs and/or symptoms were reported regarding the genitourinary system. EENT: No signs and/or symptoms were reported regarding the EENT system. Derm: Skin is pink, warm \\T\\ dry. Musculoskeletal: No deficits noted. 23:15 Reassessment: Patient concerned of nausea before being taken to CT; Provider verbal lp1 order for Zofran 4mg IV now. 23:40 Reassessment: Patient returned from CT; assisted to bathroom via WC, no complaint of lp1 nausea at this time. 05/27 00:56 Reassessment: Patient reports feeling better, dizziness on movement has improved, no lp1 nausea; States readiness for discharge. 01:25 Reassessment: Patient appears in no apparent distress at this time. Patient is alert, lp1 oriented x 3, equal unlabored respirations, skin warm/dry/pink. patient ambulated to bathroom independently, no complaints, steady gait noted Patient states feeling better. Vital Signs: 05/26 21:04 BP 185 / 96; Pulse 67; Resp 17; Temp 97.1; Pulse Ox 100% ; Weight 76.2 kg; Height 4 ft. ll1 11 in. (149.86 cm); Pain 7/10; 21:45 BP 193 / 87; Pulse 67; Resp 18; Pulse Ox 98% on R/A; lp1 22:15 BP 176 / 64; Pulse 60; Resp 18; Pulse Ox 100% on R/A; lp1 23:15 BP 166 / 93; Pulse 61; Resp 17; lp1 05/27 00:00 BP 161 / 77; Pulse 59; Resp 19; Pulse Ox 95% on R/A; lp1 01:03 BP 149 / 76; Pulse 67; Resp 17; Pulse Ox 99% on R/A; Pain 0/10; lp1 01:54 BP 145 / 77; Pulse 66; Resp 16; Pulse Ox 99% on R/A; rv 05/26 21:04 Body Mass Index 33.93 (76.20 kg, 149.86 cm) ll1 ED Course: 05/26 21:03 Patient arrived in ED. cl3 21:06 Triage completed. ll1 21:08 Arm band placed on. ll1 21:48 Dani Gallardo MD is Attending Physician. 7 21:54 Sadaf Garcia, ELIZA is Primary Nurse. lp1 22:15 Inserted saline lock: 20 gauge in left antecubital area, using aseptic technique. Blood lp1 collected. 22:34 Patient has correct armband on for positive identification. Placed in gown. Bed in low lp1 position. Call light in reach. terminal superintendent on. Pulse ox on. NIBP on. 22:41 XRAY Chest (1 view) In Process Unspecified. EDMS 23:39 CT Head Brain wo Cont In Process Unspecified. EDMS 23:58 CT Abd/Pelvis - IV Contrast Only In Process Unspecified. EDMS 05/27 01:33 No provider procedures requiring assistance completed. lp1 01:40 Marci Suero MD is Referral Physician. mh7 01:55 IV discontinued, intact, bleeding controlled, No redness/swelling at site. Pressure rv dressing applied. Administered Medications: 05/26 22:20 Drug: Zofran (Ondansetron) 4 mg Route: IVP; Site: left antecubital; lp1 22:45 Follow up: Response: No adverse reaction lp1 22:20 Drug: Pepcid (famotidine) 20 mg Route: IVP; Site: left antecubital; lp1 23:00 Follow up: Response: No adverse reaction lp1 22:20 Drug: NS 0.9% 500 ml Route: IV; Rate: bolus; Site: left antecubital; lp1 23:00 Follow up: IV Status: Completed infusion; IV Intake: 500ml lp1 23:19 Drug: Zofran (Ondansetron) 4 mg Route: IVP; Site: left antecubital; lp1 23:45 Follow up: Response: Nausea is decreased lp1 05/27 00:56 Drug: Meclizine 25 mg Route: PO; lp1 01:55 Follow up: Response: No adverse reaction rv Intake: 05/26 23:00 IV: 500ml; Total: 500ml. lp1 Outcome: 05/27 01:41 Discharge ordered by MD. [email or web address] 01:54 Discharged to home ambulatory. rv 01:54 Condition: good 01:55 Discharge instructions given to patient, Instructed on discharge instructions, follow rv up and referral plans. medication usage, Demonstrated understanding of instructions, follow-up care, medications, Prescriptions given X 1. 01:55 Patient left the ED. rv Signatures: Dispatcher [employer] EDMS Sadaf Garcia RN RN lp1 Payam Thomas RN RN rv Ariana Barrientos 3 Fred Barrientos RN RN ll1 Dani Gallardo MD MD 7 Corrections: (The following items were deleted from the chart) 05/26 21:11 21:04 Acuity: ARMOND 3 ll1 ll1
[2020-05-27 04:42] VITALS: TEMP 97.1
[2020-05-27 04:49] VITALS: O2SAT 99
[2020-05-27 04:50] VITALS: BP 145/77
--- NOTE | 2020-05-27 09:49 | EKG ---
Test Date: 2020-05-26 Test Time: 22:04:47 Deicer Finisher: NELSY MEASUREMENT RESULTS: Intervals: Rate: 57 WY: 136 QRSD: 74 QT: 446 QTc: 434 [place]: P: 51 WY: 136 QRS: 5 T: 32 INTERPRETIVE STATEMENTS: Sinus bradycardia Cannot rule out Anterior infarct, age undetermined Abnormal ECG Compared to ECG 12/07/2017 10:40:09 Myocardial infarct finding now present Sinus rhythm no longer present Left ventricular hypertrophy no longer present Electronically Signed On 05-27-20 09:47:36 CDT by Brandon Singh
--- NOTE | 2020-05-27 10:11 | RAD REPORT ---
EXAM DESCRIPTION: Charline Single View05/26/2020 10:41 pm CLINICAL HISTORY: Hypertension COMPARISON: 2017 FINDINGS: The lungs appear clear of acute infiltrate. The heart is normal size IMPRESSION: No acute abnormalities displayed
--- NOTE | 2020-05-28 11:57 | RAD REPORT ---
EXAM DESCRIPTION: CT - Abdomen Pelvis W Contrast - 05/27/2020 7:03 am CLINICAL HISTORY: NAUSEA / VOMITING. COMPARISON: None. TECHNIQUE: CT of the abdomen and pelvis was performed following intravenous administration of iodina amber contrast. Arterial phase images through the abdomen, and portal venous phase images through the a bdomen and pelvis were obtained. Oral contrast was not administered. Axial, coronal, and sagittal sof t tissue window reconstructions were created and sent to PACS. This exam was performed according to o departmental dose-optimization program, which includes automated exposure control, adjustment of t he mA and/or kV according to patient size and/or use of iterative reconstruction technique. FINDINGS: Thoracic: No significant abnormality.Hepatobiliary: No concerning hepatic lesion identifie d. The hepatic and portal veins are patent. The gallbladder is suspected surgically absent. Mild cent ral intrahepatic and common bile duct prominence, measuring up to 1.3 cm in diameter at the jaswant hep atis, with normal tapering towards the ampulla.Pancreas: Unremarkable.Spleen: Unremarkable.Gastrointe stinal: Prior gastric sleeve surgery. No evidence of bowel obstruction or perienteric inflammation. T he appendix is nonvisualized, but there are no pericecal inflammatory changes. Mild sigmoid colonic d iverticulosis. Small amount of fecal material throughout the colon.Adrenals: No abnormality identifie d in either adrenal gland.Renal: No concerning parenchymal abnormality in either kidney. No hydroneph rosis or urolithiasis.Bladder/Reproductive: Unremarkable appearance of the urinary bladder by lead technical architect nique. Prior hysterectomy.Vascular/Lymphatics: No lymphadenopathy identified by CT size criteria. Abd ominal aorta is normal in caliber. The major visceral vessels are patent. Mild atherosclerosis.Muscul oskeletal: No concerning osseous lesion identified.Fluid / peritoneum: No significant free fluid. N o free intraperitoneal air identified. IMPRESSION 1. No acute abnormality identified in the abdomen or pelvis. 2. Prior cholecystectomy. Mild central intrahepatic and common bile duct prominence with normal tap ering. These findings are favored postsurgical and senescent in etiology. 3. Prior gastric sleeve surgery and hysterectomy. Electronically signed by: Divya Angel MD 05/27/2020 12:09 AM CDT Due to temporary technical issues with the PACS/Fluency reporting system, reports are being signed by the in house radiologist without review as a courtesy to ensure prompt reporting. The interpreting r adiologist is fully responsible for the content of the report.
--- NOTE | 2020-05-28 11:58 | RAD REPORT ---
EXAM DESCRIPTION: CT - Head Brain Wo Cont - 05/27/2020 7:02 am CLINICAL HISTORY: DIZZINESS. TECHNIQUE: Axial, coronal, and sagittal images through the brain were performed in the absence of in travenous contrast. This exam was performed according to our departmental dose-optimization program w hich includes use of Automated Exposure Control, adjustment of the mA and/or kV according to patient size and/or use of iterative reconstruction technique. COMPARISON: CT of the head from December 07, 2017. FINDINGS: There is diffuse age-appropriate atrophy throughout the brain parenchyma. Mild periventric ular white matter changes are present, and there is mild ex vacuo dilatation of the ventricular syste m. There is no intra-axial or extra-axial bleed. There is no mass or mass effect. The visualized paranasal sinuses and mastoid air cells are patent. No fracture is identified. IMPRESSION: 1. No acute intracranial abnormality identified. 2. Mild chronic age-related and microvascular ischemic changes. Electronically signed by: Divya Angel MD 05/26/2020 11:43 PM CDT Due to temporary technical issues with the PACS/Fluency reporting system, reports are being signed by the in house radiologist without review as a courtesy to ensure prompt reporting. The interpreting r adiologist is fully responsible for the content of the report.
== END 2020-05-27 01:55 | disposition home or self-care (01) ==
LOC: ER 21:03
DX: R42 Dizziness and giddiness (principal); I10 Essential (primary) hypertension; E03.9 Hypothyroidism, unspecified; Z88.3 Allergy status to other anti-infective agents; Z88.6 Allergy status to analgesic agent
CPT/HCPCS: 96361; 93005; 85025; 80048; 36415; 83735; 85610; 80076; 81003; 84484; 83690; 83880; 70450; 74177; 71045; 96375; 96374; 99284; Q9967; J7040; J2405 ×2

== ENCOUNTER 2022-02-06 03:35 | Emergency (ER) | payer OTHER ==
--- OUTSIDE RECORDS SUMMARY | 2022-02-06 03:38 | XMS REPORT | Continuity of Care Document ---
:1950 Author Organization [facility] t Address [address] [place] [address] [address]. [address] [place] [address] Care Team Providers Name Role Phone Osvaldo Duff MD Primary Care Physician Kari Bae MD Attending Clinician Christen Allison Attending Clinician Beatrice Attending Clinician Unavailable JOSIE HERRON Attending Clinician Unavailable KERWIN KOHLI Attending Clinician Unavailable Beatrice Admitting Clinician Unavailable JOSIE HERRON Admitting Clinician Unavailable Payers Payer Name Policy Type Policy Number Effective Date Expiration Date Freedom WHITE (MEDICARE MEBLSSLL 2015 2019 REPLACEMENT PPO) 00:00:00 00:00:00 Problems Condition Condition Condition Status Onset Resolution Last Treating Co mments Source Name Details Category Date Date Treatment Clinician Date 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 00:00: Ho spita 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 Chronic Chronic Disease Active 2019-03 [facility] cystitis cystitis 0-28 st without without 00:00: Hospita hematuria hematuria 00 l 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 3-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 urge 00:00: Hospita urinary urinary 00 l incontinen incontinen 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:00: Ho spita 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) Cystocele Cystocele Disease Active [facility] with with 6-03 st prolapse prolapse 00:00: Hospit a 00 l Rectocele Rectocele Disease Active [facility] 08-02 st 00:00: Hospita 00 l Allergies, Adverse Reactions, Alerts Allergy Allergy Status Severity Reaction(s) Onset Inactive Treating Comm ents Source Name Type Date Date Clinician Erythrom Propensi Active Other (See Me [facility] ycin ty to Comments) 06-12 st adverse 00:00: Hospita reaction 00 l s to drug Chlorhex Propensi Active Other (See welts [facility] idine ty to Comments) 11-29 adverse 00:00: Hospita reaction 00 l s to drug Povidone Propensi Active Other (See "whelps M ethodi -Iodine ty to Comments) 11-[address] adverse 00:00: where " Hospita reaction 00 l s to drug Other Propensi Active Other (See Milk and Me thodi Food ty to Comments) 11-02 st adverse 00:00: products Hospita reaction 00 l s Penicill Propensi Active Anaphylaxis Swelling [facility] in V ty to [address] adverse 00:00: she is Hospita reaction 00 also l s to allergic drug to another antibioti c but she does not know the name Swelling of mouth she is also allergic to another antibioti c but she does not know the name Morphine Propensi Active GI N&VN&V [facility] i ty to Intolerance 6-04 st adverse 00:00: Hospita reaction 00 l s to drug Family History Family Member Diagnosis Comments Start Date Stop Date Source Natural brother Diabetes [facility] Natural brother [facility] brother Cancer [facility] father Heart disease [facility] Natural mother Diabetes [facility] Natural mother Heart disease [facility] Social [facility] Social Habit Start Date Stop Date Quantity Comments Source History [facility] Drinks History [facility] Alcohol intake 2021-12-24 2021-12-24 Lifetime [facility] 00:00:00 00:00:00 non-drinker Hospital (finding) History [facility] 2019-12-28 2019-12-28 1 [facility] Alcohol Frequency 00:00:00 00:00:00 Hospita l Tobacco use and 2018-08-03 2018-08-03 Smokeless tobacco [facility] exposure 00:00:00 00:00:00 non-user Hospital Sex Assigned At [birth year] [facility] 00:00:00 00:00:00 Hospital Smoking Status Start Date Stop Date Source Never smoked tobacco [facility] Medications Ordered Filled Start Stop Current Ordering Indication Dosage Frequency Signature Comments Components Source Medication Medication Date Date Medication? Clinician (SIG) Name Name estradioL Yes INSERT 1 Meth matt (ESTRACE) 9-[address] 0.01 % (0.1 00:00: VAGINALLY H ospita mg/gram) 00 3 TIMES A l vaginal WEEK cream losartan 2021- No 50mg QD Take 50 mg Me thodi (COZAAR) 50 4-25 04-[address] MG tablet 13:24: 00:00 daily. Hospi ta 09 :00 l thyroid, Yes 120mg QD Take 120 Meth matt pork, 4-[address] (ARMOUR 13:15: mouth Hospita THYROID) 48 every l 120 mg morning. tablet thyroid, Yes 30mg QD Take 30 mg Met hodi pork, 4-[address] (ARMOUR 13:15: every Hospita THYROID) 30 48 morning. l mg tablet amLODIPine Yes .5{tbl} Take 0.5 [facility] (NORVASC) 4-[address] 2.5 mg 13:15: mouth. Hospita tablet 09 Half in l the morningHal f at night estradioL 2021- No 1g [id number] Insert 1 g [facility] (ESTRACE) 4-25 -[id number] 0.01 % (0.1 00:00: 00:00 3W vagina 3 H ospita mg/gram) 00 :00 (three) l vaginal times a cream week. ampicillin 2019-03 No [id number] 1g Q4H Me [facility] (PRINCIPEN) 0-28 04-25 st injection 1 22:00: 18:13 Hospi ta g 00 :01 l metoprolol 2019-03 No 25mg QD Take 25 mg [facility] succinate 0-05 04-[address] XL 00:00: 00:00 daily. Hospita (TOPROL-XL) 00 :00 l 25 mg 24 hr tablet nitrofurant 2021- No TK 1 C PO [facility] oin 11-27-[address] (MACRODANTI 00:00: 00:00 OR MILK Ho spita N) 100 MG 00 :00 FOR 7 DAYS l capsule azithromyci 2021- No Metho di n 11-16 st (ZITHROMAX) 00:00: 00:00 Hospi ta 500 MG 00 :00 l tablet hydrOXYchlo No Metho di roQUINE 11-16 st (PLAQUENIL) 00:00: 00:00 Hospi ta 200 mg 00 :00 l tablet sulfamethox 2021- No 1{tbl} Take 1 M ethodi azole-trime 11-[address] thoprim 00:00: 00:00 mouth. Hospita (BACTRIM 00 :00 l DS) 800-160 mg per tablet estradioL No SHARLENE 0.5 Meth matt (ESTRACE) 11-11-[address] 0.01 % (0.1 00:00: 00:00 GRAM EVERY Hospita mg/gram) 00 :00 NIGHT FOR l vaginal 2 WEEKS cream THEN APPLY TWICE A WEEK THEREAFTER indapamide 2021- No 2.5mg QD Take 2.5 M ethodi (LOZOL) 2.5 7- 04-[address] MG tablet 00:00: 00:00 mouth Hospit a 00 :00 daily. l indapamide Yes [facility] (LOZOL) 3- st 1.25 MG 00:00: Hospita tablet 00 l estradioL 2021- No APPLY Method i (ESTRACE) 2 04-[address] 0.01 % (0.1 00:00: 00:00 NIGHT FOR Hospita mg/gram) 00 :00 3 WEEKS, l vaginal THEN APPLY cream 3 NIGHTS PER WEEK. hydrALAZINE 2018-03- No 10mg Q.[id number] Take 10 mg [facility] (APRESOLINE 03-02 [id number] mouth [address] ) 10 MG 00:00: 00:00 3D (three) Hospit a tablet 00 :00 times a l day. Procedures Procedure Date / Time Performed Performing Clinician [facility] e POC URINALYSIS DIPSTICK 2021-06-24 18:02:00 Christen Reese Met [facility] Plan of Care Planned Activity Planned Date Details Comments Source Future Scheduled 2022-01-05 HEPATITIS B VACCINES Met [facility] Test 14:13:26 (1 of 3 - 3-dose series) [code = HEPATITIS B VACCINES (1 of 3 - 3-dose series)] Future Scheduled 2022-01-05 COVID-19 VACCINE (#1) [facility] Test 14:13:26 [code = COVID-19 VACCINE (#1)] Future Scheduled 2022-01-05 Hepatitis C screening [facility] Test 14:13:26 (procedure) [code = 721809469] Future Scheduled 2022-01-05 BREAST CANCER [facility] Test 14:13:26 SCREENING [code = BREAST CANCER SCREENING] Future Scheduled 2022-01-05 COLONOSCOPY SCREENING [facility] Test 14:13:26 [code = COLONOSCOPY SCREENING] Future Scheduled 2022-01-05 SHINGLES VACCINES (1 Met [facility] Test 14:13:26 of 2) [code = SHINGLES VACCINES (1 of 2)] Future Scheduled 2022-01-05 65+ PNEUMOCOCCAL [facility] Test 14:13:26 VACCINE (1 - PCV) [code = 65+ PNEUMOCOCCAL VACCINE (1 - PCV)] Future Scheduled 2022-01-05 INFLUENZA VACCINE [facility] Test 14:13:26 [code = INFLUENZA VACCINE] Encounters Start End Encounter Admission Attending Care Care Encounter Source Date/Time Date/Time Type Type Clinicians Facility Department ID 2021-12-24 2021-12-[address]1 [id number] [facility] 13:15:00 14:35:36 Visit Kari [id number] Delfina Martinez 3.430.2.7 Hospit a .[id number] l .8 2021-12-24 2021-12-24 Outpatient [facility] [id number] 00:00:00 00:00:00 KARI Mathis [facility] 2021-11-22 2021-11-22 Refill Hugh, 1.2.840.1 [id number] [facility] 00:00:00 00:00:00 Christen Prasad [id number] 3.430.2.7 Hospit a .3.391646 l .8 2021-06-24 2021-06-24 Office Hugh, 1.2.840.1 [id number] [facility] 13:30:00 13:45:00 Visit Christen Prasad [id number] 3.430.2.7 Hospit a .[id number] l .8 2021-06-24 2021-06-24 Outpatient [facility] [id number] 00:00:00 00:00:[address] 2021-01-04 2021-01-04 Outpatient [facility] [id number] [place] 04:22:00 04:22:00 [address] [facility] 2019-12-28 2019-12-28 Outpatient GERMAINE, [facility] [id number] [place] 00:00:00 00:00:00 JOSIE 085 Method i 2019-08-25 2019-08-25 Outpatient KAMILLA, [facility] [id number] 00:00:00 00:00:00 KERWIN [address] 2019-05-11 2019-05-11 Outpatient GERMAINE, [facility] [id number] [place] 00:00:00 00:00:[address] JOSIE [address] 2018-11-29 2018-11-30 Outpatient GERMAINE, [facility] [id number] [place] 00:00:00 00:00:00 JOSIE [address] Results Test Description Test Time Test Comments Results Result Comments Source POC urinalysis dipstick 2021-06-24 18:02:00 Test Item Value Reference Range Interpretation Comme nts Color urine, POC (test code = Yellow 8470826) Clarity urine, POC (test code = Clear 0007676) Glucose urine, POC (test code = Negative Negative 4558371) Bilirubin urine, POC (test code Negative Negative = 2830401) Ketones urine, POC (test code = Negative Negative 8444073) Specific gravity urine, POC 1.005-1.030 (test code = 3661977) Blood urine, POC (test code = Negative Negative 1520364) pH urine, POC (test code = See_Comment [Automated message] The 4300009) system which ge nerated this result transmit amber reference range: 5.0, 5.5 , 6.0, 6.5, 7.0, 7.5, 8.0, 8.5. The reference range was not used to interpret th is result as normal/abnormal . Protein urine, POC (test code = Negative Negative 0810298) Urobilinogen urine, POC (test <2.0 See_Comment [Automated message] The code = 8027542) system which generated this result transmit amber reference range: <=2.0. T he reference range was not u sed to interpret this result as normal/abnormal . Nitrite urine, POC (test code = Negative Negative 2595346) Leukocyte esterase urine, POC Negative Negative (test code = 2705955) [facility]
[2022-02-06] MEDS ORDERED: DIAZEPAM 5 MG TABLET ONE (03:51)
[2022-02-06] MEDS ORDERED: HYDROMORPHONE HCL 1 MG/ML INJ ONE (03:51)
[2022-02-06] MEDS ORDERED: ONDANSETRON 4 MG/2 ML VIAL ONE (03:52)
[2022-02-06] MEDS ORDERED: NA CHLORIDE 0.9% 1,000 ML ONE (03:52)
[2022-02-06] MEDS ORDERED: NA CHLORIDE 0.9% 500 ML ONE (03:52)
[2022-02-06] MEDS ORDERED: dexAMETHasone 10 MG/ML VIAL ONE (03:52)
[2022-02-06 04:29] LABS: Absolute Lymphocytes (CBC) 1.5 K/uL (0.7-4.9); Hematocrit 39.9 % (36.0-45.0); Lymphocytes % 19.2 % (15.3-44.8); MCV 86.4 fL (80-100); MPV 10.2 fL (7.6-11.3); RBC Red Blood Cell Count 4.62 M/uL (3.86-4.86)
[2022-02-06 04:40] LABS: Albumin 3.6 g/dL (3.4-5.0); Bilirubin Total 0.4 mg/dL (0.2-1.0); Potassium 3.6 mmol/L (3.5-5.1); Protein, Total 7.5 g/dL (6.4-8.2)
--- NOTE | 2022-02-06 06:51 | EDPHYS ---
Physician Documentation [facility] Name: Mary Padilla Age: 71 yrs Sex: Female : 1950 Arrival Date: 02/06/2022 Time: 03:36 Bed 5 Private MD: ED Physician Evens Stafford HPI: 02/06 03:46 This 71 yrs old Female presents to ER via EMS with complaints of low back pau pain. 03:46 The patient presents with pain that is acute, with no known mechanism of injury. The pau symptoms are located in the low back. Onset: The symptoms/episode began/occurred 3 day(s) ago. The pain does not radiate. Associated signs and symptoms: Pertinent positives: nausea. The problem was sustained from unknown cause. Modifying factors: The patient symptoms are alleviated by nothing, the patient symptoms are aggravated by any movement, bending, coughing. Severity of symptoms: At their worst the symptoms were moderate, severe, in the emergency department the symptoms are unchanged. The patient has experienced similar episodes in the past, a few times. Historical: - Allergies: 03:38 Advil; kl 03:38 Erythromycin; kl 03:38 morphine; kl 03:38 Demerol; kl 03:38 GABAPENTIN; kl 03:38 Codeine; kl - Home Meds: 03:38 [place] Thyroid Oral [Active]; Dexilant 60 mg Oral CpDB [Active]; losartan 50 mg Oral kl tab 1 tab once daily [Active]; tens unit [Active]; - PMHx: 03:38 Hypertension; Hypothyroidism; Chronic back pain; kl - Immunization history:: Adult Immunizations not up to date. - Social history:: Smoking status: Patient denies any tobacco usage or history of. - Family history:: not pertinent. ROS: 03:46 Constitutional: Negative for fever, chills, and weight loss, Eyes: Negative for injury, pau pain, redness, and discharge, ENT: Negative for injury, pain, and discharge, Neck: Negative for injury, pain, and swelling, Cardiovascular: Negative for chest pain, palpitations, and edema, Respiratory: Negative for shortness of breath, cough, wheezing, and pleuritic chest pain, Abdomen/GI: Negative for abdominal pain, nausea, vomiting, diarrhea, and constipation, : Negative for injury, bleeding, discharge, and swelling, MS/Extremity: Negative for injury and deformity, Skin: Negative for injury, rash, and discoloration, Neuro: Negative for headache, weakness, numbness, tingling, and seizure, Psych: Negative for depression, anxiety, suicide ideation, homicidal ideation, and hallucinations, Allergy/Immunology: Negative for hives, rash, and allergies, Endocrine: Negative for neck swelling, polydipsia, polyuria, polyphagia, and marked weight changes, Hematologic/Lymphatic: Negative for swollen nodes, abnormal bleeding, and unusual bruising. 03:46 Back: Positive for decreased range of motion, pain at rest, pain with movement, of the lumbar area. Exam: 03:46 Constitutional: This is a well developed, well nourished patient who is awake, alert, pau and in no acute distress. Head/Face: Normocephalic, atraumatic. Eyes: Pupils equal round and reactive to light, extra-ocular motions intact. Lids and lashes normal. Conjunctiva and sclera are non-icteric and not injected. Cornea within normal limits. Periorbital areas with no swelling, redness, or edema. ENT: Nares patent. No nasal discharge, no septal abnormalities noted. Tympanic membranes are normal and external auditory canals are clear. Oropharynx with no redness, swelling, or masses, exudates, or evidence of obstruction, uvula midline. Mucous membranes moist. Neck: Trachea midline, no thyromegaly or masses palpated, and no cervical lymphadenopathy. Supple, full range of motion without nuchal rigidity, or vertebral point tenderness. No Meningismus. Chest/axilla: Normal chest wall appearance and motion. Nontender with no deformity. No lesions are appreciated. Cardiovascular: Regular rate and rhythm with a normal S1 and S2. No gallops, murmurs, or rubs. Normal PMI, no JVD. No pulse deficits. Respiratory: Lungs have equal breath sounds bilaterally, clear to auscultation and percussion. No rales, rhonchi or wheezes noted. No increased work of breathing, no retractions or nasal flaring. Abdomen/GI: Soft, non-tender, with normal bowel sounds. No distension or tympany. No guarding or rebound. No evidence of tenderness throughout. Female : Normal external genitalia. Skin: Warm, dry with normal turgor. Normal color with no rashes, no lesions, and no evidence of cellulitis. MS/ Extremity: Pulses equal, no cyanosis. Neurovascular intact. Full, normal range of motion. Neuro: Awake and alert, GCS 15, oriented to person, place, time, and situation. Cranial nerves II-XII grossly intact. Motor strength 5/5 in all extremities. Sensory grossly intact. Cerebellar exam normal. Normal gait. Psych: Awake, alert, with orientation to person, place and time. Behavior, mood, and affect are within normal limits. 03:46 Back: pain, that is moderate, ROM is painful, decreased, normal spinal alignment noted, CVA tenderness, is absent, muscle spasm, is not present. Vital Signs: 03:37 BP 159 / 108; Resp 20; Temp 98.1; kl 03:44 Pulse 94; Pulse Ox 97% on R/A; bb 04:03 Weight 78.02 kg (R); Height 4 ft. 11 in. (149.86 cm); kl 04:18 BP 160 / 89; Pulse 78; Resp 16; kl 06:01 BP 161 / 71; Pulse 72; Resp 16; Pulse Ox 96% on R/A; ll3 07:06 BP 141 / 82; Pulse 72; Resp 18; kl 04:03 Body Mass Index 34.74 (78.02 kg, 149.86 cm) kl MDM: 03:39 Patient medically screened. pau 03:51 Differential diagnosis: chronic back pain, Fatigue Fracture Joint Injury Neoplasm pau Obesity Osteoarthritis Peptic Ulcer ruptured disc, Scoliosis sprain, Ureterolithiasis vertebral fracture. Data reviewed: vital signs, nurses notes, lab test result(s), EKG, radiologic studies, CT scan. Data interpreted: apprise counselor: rate is 94 beats/min, rhythm is regular, Pulse oximetry: on room air is 97 %. Test interpretation: by ED physician or midlevel provider: ECG, plain radiologic studies. Counseling: I had a detailed discussion with the patient and/or guardian regarding: the historical points, exam findings, and any diagnostic results supporting the discharge/admit diagnosis, lab results, radiology results. 02/06 03:44 Order name: CBC with Diff; Complete Time: 05:08 pau 02/06 03:44 Order name: Comprehensive Metabolic Panel; Complete Time: 05:08 pau 02/06 03:44 Order name: CT Lumbar Spine Wo Con [facility] 02/06 03:48 Order name: Spine Lumbar Wo Con EDMS Administered Medications: 03:55 Drug: Decadron - Dexamethasone 10 mg Route: IVP; Site: left hand; ll3 04:16 Follow up: Response: No adverse reaction kl 03:58 Drug: Zofran (Ondansetron) 4 mg Route: IVP; Site: left wrist; ll3 04:16 Follow up: Response: No adverse reaction; Marked relief of symptoms kl 04:01 Drug: Dilaudid (HYDROmorphone) 1 mg Route: IVP; Site: left hand; ll3 04:16 Follow up: Response: No adverse reaction; Marked relief of symptoms; Pain is decreased kl 04:01 Drug: Valium (diazepam) 10 mg Route: PO; ll3 06:52 Follow up: Response: No adverse reaction; Marked relief of symptoms kl 04:02 Not Given (Patient Refused): Ketorolac 15 mg IVP once kl 04:17 Drug: NS 0.9% 500 ml Route: IV; Rate: bolus; Site: right hand; kl 05:00 Follow up: IV Status: Completed infusion; IV Intake: 500ml kl 05:11 Drug: NS 0.9% 1000 ml Route: IV; Rate: 125 ml/hr; Site: right hand; kl Disposition Summary: 02/06/22 06:51 Discharge Ordered Location: Home pau Problem: new pau Symptoms: have improved pau Condition: Stable pau Diagnosis - Strain of muscle, fascia and tendon of lower back pau - Low back pain pau - Spinal stenosis, lumbosacral region - L4-L5 pau Followup: pau - With: Private Physician - When: 2 - 3 days - Reason: Recheck today's complaints, Continuance of care, Re-evaluation by your physician Followup: pau - With: - When: 2 - 3 days - Reason: Recheck today's complaints, Re-evaluation by your physician Discharge Instructions: - Discharge Summary Sheet pau - Acute Back Pain, Adult pau - Musculoskeletal Pain pau - Sciatica pau - Sciatica, [id number] pau - Spinal Stenosis pau Forms: - Medication Reconciliation Form pau - Thank You Letter pau - Antibiotic Education pau - Prescription Opioid Use pau Prescriptions: - dexamethasone 2 mg Oral tablet - take 2 tablet by ORAL route 2 times per day; 10 tablet; Refills: 0, Product pau Selection Permitted - Ibuprofen 600 mg Oral Tablet - take 1 tablet by ORAL route every 6 hours As needed take with food; 30 tablet; [facility] Refills: 0, Product Selection Permitted - Cyclobenzaprine 5 mg Oral Tablet - take 1 tablet by ORAL route 3 times per day As needed; 15 tablet; Refills: 0, [facility] Product Selection Permitted - Tramadol 50 mg Oral Tablet - take 2 tablet by ORAL route every 8 hours as needed; 26 tablet; Refills: 0, [facility] Product Selection Permitted Signatures: Dispatcher [employer] Odalis Diego RN RN kl Anderson, Corey, MD MD cha Loubet, Lynsea, RN RN ll3 Corrections: (The following items were deleted from the chart) 04:37 03:44 EKG - Nurse/Tech ordered. pau 3
--- NOTE | 2022-02-06 06:51 | ER ---
Nurse's Notes [facility] Name: Mary Padilla Age: 71 yrs Sex: Female : 1950 Arrival Date: 02/06/2022 Time: 03:36 Bed 5 Private MD: Diagnosis: Strain of muscle, fascia and tendon of lower back;Low back pain;Spinal stenosis, lumbosacral [id number] Presentation: 02/06 03:37 Chief complaint: Patient states: severe lower back pain. Initial Sepsis Screen: Does kl the patient meet any 2 criteria? No. Patient's initial sepsis screen is negative. Does the patient have a suspected source of infection? No. Patient's initial sepsis screen is negative. Risk Assessment: Do you want to hurt yourself or someone else? Patient reports no desire to harm self or others. 03:37 Method Of Arrival: EMS: [facility] 03:37 Acuity: ARMOND 4 03:45 Care prior to arrival: Medication(s) given: ultram. 04:02 Coronavirus screen: Vaccine status: Patient reports being unvaccinated. Ebola Screen: Patient negative for fever greater than or equal to 101.5 degrees Fahrenheit, and additional compatible Ebola Virus Disease symptoms. 07:08 Onset of symptoms. Triage Assessment: 03:43 General: Appears distressed, uncomfortable, Behavior is anxious, crying, restless. kl Pain: Complains of pain in coccyx and left lower back. Historical: - Allergies: 03:38 Advil; kl 03:38 Erythromycin; kl 03:38 morphine; kl 03:38 Demerol; kl 03:38 GABAPENTIN; kl 03:38 Codeine; kl - Home Meds: 03:38 [place] Thyroid Oral [Active]; Dexilant 60 mg Oral CpDB [Active]; losartan 50 mg Oral kl tab 1 tab once daily [Active]; tens unit [Active]; - PMHx: 03:38 Hypertension; Hypothyroidism; Chronic back pain; kl - Immunization history:: Adult Immunizations not up to date. - Social history:: Smoking status: Patient denies any tobacco usage or history of. - Family history:: not pertinent. Screenin:17 Abuse screen: Denies threats or abuse. Nutritional screening: No deficits noted. kl Tuberculosis screening: No symptoms or risk factors identified. Fall Risk No fall in past 12 months (0 pts). Secondary diagnosis (15 points) impaired mobility, IV access (20 points). Ambulatory Aid- Furniture (30 pts.). Gait- Impaired (20 pts.). Mental Status- Oriented to own ability (0 pts). Total Lamb Fall Scale indicates High Risk Score (45 or more points). Side Rails Up X 2 Placed Close to Nursing Station Frequent Obs/Assessments Occuring Family Present and informed to notify staff if the need to leave the bedside As available patient and family educated on Fall Prevention Program and Strategies. Assessment: 04:18 Reassessment: Patient appears in no apparent distress at this time. Patient and/or kl family updated on plan of care and expected duration. Pain level reassessed. Patient is alert, oriented x 3, equal unlabored respirations, skin warm/dry/pink. Patient states feeling better. Patient states symptoms have improved. 06:01 Reassessment: Patient and/or family updated on plan of care and expected duration. Pain ll3 level reassessed. Patient is alert, oriented x 3, equal unlabored respirations, skin warm/dry/pink. Vital Signs: 03:37 BP 159 / 108; Resp 20; Temp 98.1; kl 03:44 Pulse 94; Pulse Ox 97% on R/A; bb 04:03 Weight 78.02 kg (R); Height 4 ft. 11 in. (149.86 cm); kl 04:18 BP 160 / 89; Pulse 78; Resp 16; kl 06:01 BP 161 / 71; Pulse 72; Resp 16; Pulse Ox 96% on R/A; ll3 07:06 BP 141 / 82; Pulse 72; Resp 18; kl 04:03 Body Mass Index 34.74 (78.02 kg, 149.86 cm) ED Course: 03:36 Patient arrived in ED. kl 03:38 Triage completed. kl 03:39 Evens Stafford MD is Attending Physician. pau 03:50 Inserted saline lock: 20 gauge in right hand, using aseptic technique. Blood collected. kl 04:16 Spine Lumbar Wo Con In Process Unspecified. EDMS 06:48 Augusto Carl MD is Referral Physician. pau 06:50 No apparent distress. Appears to be sleeping. kl 07:06 Patient has correct armband on for positive identification. kl 07:07 No provider procedures requiring assistance completed. IV discontinued, intact, kl bleeding controlled, No redness/swelling at site. Pressure dressing applied. Administered Medications: 03:55 Drug: Decadron - Dexamethasone 10 mg Route: IVP; Site: left hand; ll3 04:16 Follow up: Response: No adverse reaction kl 03:58 Drug: Zofran (Ondansetron) 4 mg Route: IVP; Site: left wrist; ll3 04:16 Follow up: Response: No adverse reaction; Marked relief of symptoms kl 04:01 Drug: Dilaudid (HYDROmorphone) 1 mg Route: IVP; Site: left hand; ll3 04:16 Follow up: Response: No adverse reaction; Marked relief of symptoms; Pain is decreased kl 04:01 Drug: Valium (diazepam) 10 mg Route: PO; ll3 06:52 Follow up: Response: No adverse reaction; Marked relief of symptoms kl 04:02 Not Given (Patient Refused): Ketorolac 15 mg IVP once kl 04:17 Drug: NS 0.9% 500 ml Route: IV; Rate: bolus; Site: right hand; kl 05:00 Follow up: IV Status: Completed infusion; IV Intake: 500ml kl 05:11 Drug: NS 0.9% 1000 ml Route: IV; Rate: 125 ml/hr; Site: right hand; kl Medication: 07:08 VIS not applicable for this client. kl Intake: 05:00 IV: 500ml; Total: 500ml. Outcome: 06:51 Discharge ordered by MD. mai 07:07 Discharged to home ambulatory, with family. kl 07:07 Condition: improved 07:07 Discharge instructions given to patient, family, Instructed on discharge instructions, follow up and referral plans. medication usage, Demonstrated understanding of instructions, follow-up care, medications, Prescriptions given X 4. 07:08 Patient left the ED. Signatures: Dispatcher [employer] EDMS Odalis Barrientos RN RN kl Anderson, Corey, MD MD cha Ballard, Brenda, RN RN Min Rodríguez RN RN ll3
[2022-02-06 08:58] VITALS: TEMP 98.1
[2022-02-06 09:04] VITALS: O2SAT 96
[2022-02-06 09:05] VITALS: BP 141/82
--- NOTE | 2022-02-06 13:50 | RAD REPORT ---
EXAM DESCRIPTION: CT - Spine Lumbar Wo Con - 02/06/2022 6:50 am COMPARISON: None. CLINICAL HISTORY: HS MAIN Lumbar radiculopathy, no red flags, no prior management TECHNIQUE: Axial CT images were obtained through the entire lumbar spine without contrast. [place] l and coronal reconstructions are provided. Automated exposure control was utilized on this examinati on as a dose lowering technique. FINDINGS: Vertebrae: Vertebral statures and alignment are normal. No acute fracture, dislocation o r destructive osseous process is present. Spinal canal, foramina, and facet joints: Mild spinal canal stenosis at L2-L3 and L3-L4 due to disc bulges and facet hypertrophy. Moderate to s evere stenosis at L4-L5 also due to disc bulges and facet hypertrophy. Paraspinous soft-tissues: Normal. Other Findings: None. IMPRESSION: Moderate to severe spinal canal stenosis at L4-L5. No other acute findings. Electronically signed by: Jimmy Mack MD 02/06/2022 5:04 AM MANAGEMENT CONSULTANT Due to temporary technical issues with the PACS/Fluency reporting system, reports are being signed by the in house radiologists without review as a courtesy to insure prompt reporting. The interpreting radiologist is fully responsible for the content of the report.
== END 2022-02-06 07:08 | disposition home or self-care (01) ==
LOC: ER 03:35
DX: S39.012A Strain of muscle, fascia and tendon of lower back, initial encounter (principal); M48.07 Spinal stenosis, lumbosacral region; I10 Essential (primary) hypertension; E03.9 Hypothyroidism, unspecified; Z88.3 Allergy status to other anti-infective agents; Z88.5 Allergy status to narcotic agent; Z88.6 Allergy status to analgesic agent; Z88.8 Allergy status to other drugs, medicaments and biological substances
CPT/HCPCS: 85025; 36415; 80053; 72131; 99284; J1100; J1170; J7040; J7030; J2405